=== PATIENT | male | born 1940 | race Caucasian/White ===

== ENCOUNTER 2022-02-09 15:51 | Inpatient (IN) | payer MEDICARE, OTHER ==
[~2022-02-09] VITALS: Ht 172.7 cm; Wt 84.4 kg
--- NOTE | 2022-02-09 16:06 | NUR ---
DR REYNOLDS AT BEDSIDE FOR EVALUATION.
--- NOTE | 2022-02-09 16:07 | NUR ---
Patient is awake, alert, oriented x3. Bleeding from both nares but much worse on left nares. Epistaxis clip applied. patient states he stopped Plavix 4 days ago and has a hx of nose bleed "due to prior neurosurgery where they enter from my left nostril"
[2022-02-09] MEDS ORDERED: OXYMETAZOLINE NASAL 0.05% 15 ML SPRAY NS ONE ×2 (16:12→16:15)
[2022-02-09 16:57] LABS: HEMATOCRIT 36.8 % (36.7-47.1); MEAN CORPUSCULAR HEMOGLOBIN 30.7 uug (23.8-33.4); MEAN CORPUSCULAR VOLUME 90.7 fL (73.0-96.2); PLATELET COUNT (AUTO) 172 K/uL (152-348)
[2022-02-09 17:05] LABS: CARBON DIOXIDE 28 mmol/L (21-32); CHLORIDE 103 mmol/L (98-107); CREATININE 1.4 mg/dL (0.6-1.3); GLUCOSE 130 mg/dL (74-106); POTASSIUM 3.9 mmol/L (3.5-5.1); UREA NITROGEN, BLOOD 28 mg/dL (7-18)
--- NOTE | 2022-02-09 17:24 | NUR ---
Nose bleed has diminished significantly since Dr Marie placed the "nasal tampon"
--- NOTE | 2022-02-09 17:37 | NUR ---
Patient ambulated to bathroom and voided urine and washed his hands. Denies dizziness or headache
[2022-02-09] MEDS ORDERED: IV NS 1000 ML 1,000 ML IV ONE (18:30)
--- NOTE | 2022-02-09 18:39 | NUR ---
Covid swab sent to lab, swabbed throat per Dr Marie since his left nare has a tampon and right nare is leaking blood, did not want to irritate it
--- NOTE | 2022-02-09 18:39 | NUR ---
Both nares oozing small amount of blood. Patient states he cannot drink water properly. Dr Marie aware.
--- NOTE | 2022-02-09 18:56 | NUR ---
Hand off report given to Ryan NIELSEN
[2022-02-09 19:12] LABS: *BILIRUBIN,URIN NEGATIVE (NEGATIVE); *BLOOD, URINE NEGATIVE (NEGATIVE); *CLARITY,URINE CLEAR (CLEAR); *COLOR,URINE YELLOW (YELLOW); *KETONES,URINE NEGATIVE (NEGATIVE); *UROBILINOGEN,URINE 0.2 E.U./dl (NORMAL); LEUKOCYTE ESTERASE ,URINE TRACE (NEGATIVE); NITRITE, URINE POSITIVE (NEGATIVE); PH,URINE 7.5 (5.0-8.0); UGLUCOSE NEGATIVE (NEGATIVE)
[2022-02-09 19:31] LABS: BACTERIA,URINE MODERATE /HPF (NONE SEEN); RBC,URINE 0-3 /HPF (0-3); SQUAMOUS EPITHELIAL CELL,UR FEW /HPF (NONE SEEN)
[2022-02-09] MEDS ORDERED: ENALAPRILAT DIHYDRATE 1.25 MG/1 ML VIAL IV PRN (19:45)
[2022-02-09] MEDS ORDERED: MAGNESIUM HYDROXIDE 30 ML LIQUID UDC PO PRN (19:45)
[2022-02-09] MEDS ORDERED: ACETAMINOPHEN 325 MG TABLET PO PRN (19:45)
[2022-02-09] MEDS ORDERED: ONDANSETRON 4 MG/2 ML VIAL IV PRN (19:45)
--- NOTE | 2022-02-09 20:38 | NUR ---
report given to Syeda NIELSEN Tele.
[2022-02-09] MEDS ORDERED: MELA3TAB41 PO (21:01)
[2022-02-09] MEDS ORDERED: TAMS-3 PO (21:01)
[2022-02-09] MEDS ORDERED: MELO-105 PO (21:01)
[2022-02-09] MEDS ORDERED: HYDR10SY16 PO (21:01)
--- NOTE | 2022-02-09 23:00 | NUR ---
Admitted a 81 years old male with Dx of Epistaxis. Patient AAOx4. In no apparent distress. Denies any pain or SOB at this time. Patient reported with Hx chronic back pain. Rhino Rocket nasal packing intact to left nare. Right nare with min bleeding. Patient spitting min. amount of blood as well and able to suction self. NSR on tele with HR of 82/min. IV site on left hand intact and patent. Routine admission care done. Plan of care initiated. Safety measure initiated and call light within reached.
--- NOTE | 2022-02-09 23:06 | NUR ---
pt admitted to room 308 via wheel chair with all belongings. VSAl. AOx4
[2022-02-09] MEDS: DOCUSATE SODIUM 100 MG CAPSULE PO SCH (23:23)
[2022-02-09 23:50] VITALS: BP 138/86
[2022-02-10 04:09] VITALS: BP 116/80
--- NOTE | 2022-02-10 05:55 | NUR ---
In no apparent distress. No complain of pain or SOB. Rhino Rocket nasal packing remains intact to left nare. Right nare with no further bleeding at this time. NSR on tele with HR of 60/min. IV site on left hand intact and patent. Needs attended to and met. Safety measure maintained and call light within reached.
[2022-02-10] MEDS ORDERED: ENALAPRILAT DIHYDRATE 1.25 MG/1 ML VIAL IV PRN (05:56)
[2022-02-10] MEDS: PANTOPRAZOLE SODIUM 40 MG TABLET.DR PO SCH (06:16)
[2022-02-10 07:01] LABS: HEMATOCRIT 35.8 % (36.7-47.1); MEAN CORPUSCULAR HEMOGLOBIN 31.2 uug (23.8-33.4); MEAN CORPUSCULAR VOLUME 90.7 fL (73.0-96.2); PLATELET COUNT (AUTO) 160 K/uL (152-348)
[2022-02-10 07:21] LABS: BILIRUBIN,TOTAL 0.5 mg/dL (0.2-1.0); CREATININE 1.3 mg/dL (0.6-1.3); MAGNESIUM 2.3 mg/dL (1.8-2.4); PHOSPHOROUS 2.8 mg/dL (2.5-4.9); TOTAL PROTEIN, SERUM 6.7 g/dL (6.4-8.2)
--- NOTE | 2022-02-10 07:30 | NUR ---
Alert, oriented x 4, hard of hearing. On moderate high back rest. Left nasal packing, with bloody nasal drip, self suctioned orally. Denies pain
[2022-02-10] MEDS ORDERED: POLYVINYL ALCOHOL OPHT DROPS 15 ML BOTTLE EACHEYE PRN (08:45)
[2022-02-10] MEDS ORDERED: hydrOXYzine HCL 10 MG TABLET PO PRN (10:15)
[2022-02-10] MEDS ORDERED: hydrOXYzine HCL 10 MG/5 ML UDC PO PRN (10:15)
[2022-02-10] MEDS ORDERED: MELATONIN 3 MG TABLET PO PRN (10:15)
[2022-02-10 11:46] VITALS: BP 139/65
[2022-02-10] MEDS: HYDROCODONE/APAP 5-325MG TABLET PO PRN ×3 (12:11→21:38)
--- NOTE | 2022-02-10 12:11 | NUR ---
Reports of a headache and discomfort on the left nares, requesting for adjustment of rhino rocket. Dr Camara informed, will follow up call with ENT, no adjustment to be made, leave rhino rocket as is. [place] PO given for headache.
--- NOTE | 2022-02-10 13:30 | NUR ---
Relief of a headache and left nares discomfort. No further bleeding noted.
[2022-02-10] MEDS: POLYVINYL ALCOHOL OPHT DROPS 15 ML BOTTLE EACHEYE PRN ×2 (14:07→20:14)
[2022-02-10 16:00] VITALS: BP 131/77
--- NOTE | 2022-02-10 16:03 | NUR ---
Reports of a headache. [place] PO given. at bedside.
--- NOTE | 2022-02-10 18:07 | NUR ---
headache resolved. Fair appetite, afebrile. No further bleeding noted. Rhino rocket intact on left nares. Tele SR 66.
--- NOTE | 2022-02-10 19:30 | NUR ---
Received patient lying in bed. Patient AAOx4. In no apparent distress. Denies any SOB. Mild headache at this time. Will provide Tylenol 650mg PO per order. Rhino Rocket nasal packing intact to left nares. No bleeding noted on right nares. NSR on tele with HR of 61/min. IV site on left hand intact and patent. Safety measure initiated and call light within reached.
[2022-02-10 20:06] VITALS: BP 119/45
[2022-02-10] MEDS: DOCUSATE SODIUM 100 MG CAPSULE PO SCH (20:13)
[2022-02-10 20:14] LABS: HEMATOCRIT 34.1 % (36.7-47.1)
[2022-02-10] MEDS ORDERED: ATORVASTATIN 40 MG TABLET PO SCH (21:00)
[2022-02-10] MEDS ORDERED: TAMSULOSIN HCL 0.4 MG CAP.SR.24H PO SCH (21:00)
[2022-02-11 00:05] VITALS: BP 155/65
[2022-02-11 04:00] VITALS: BP 155/86
[2022-02-11] MEDS: PANTOPRAZOLE SODIUM 40 MG TABLET.DR PO SCH (06:07)
--- NOTE | 2022-02-11 07:00 | NUR ---
Patient slept well last night. Rhino rocket on left nares remains in place. No bleeding noted on right nares and no spitting out blood. Needs attended to and met. Safety measure maintained and call light within reached.
--- NOTE | 2022-02-11 08:00 | NUR ---
AWAKE ALERT AND ORIENTED X3 NO SS OF PAIN OR DISTRESS. NASAL PACKING LEFT NOSE INTACT
--- NOTE | 2022-02-11 09:00 | NUR ---
SEEN BY DR GARDINER FOR FOLLOW-UP RREMOVE LEFT NASAL PACKING PATIENT TOLERATED WELL. WILL OBSERVE FOR BLEEDING.
[2022-02-11] MEDS ORDERED: CLOP75TA33 PO (09:26)
--- NOTE | 2022-02-11 11:01 | NUR ---
REMAINS STABLE NO SIGNS OF ACTIVE BLEEDING LEFT NOSTRIL, PLAN DC THIS PM PER MD'S ADVISE
[2022-02-11 11:55] VITALS: BP 126/75
--- NOTE | 2022-02-11 15:00 | NUR ---
discharged home stable with medication and follow-up instruction accompanied by
[2022-02-12] MEDS ORDERED: CLOPIDOGREL 75 MG TABLET PO SCH (09:00)
== END 2022-02-11 15:00 | disposition home or self-care (01) | DRG 919 ==
LOC: ER 15:53 → TELE3 21:20
PROVIDERS: ADMIT Internal Medicine; ATTEND Internal Medicine
PROC: 2Y41X5Z Packing of Nasal Region using Packing Material (ICD-10-PCS; principal; 2022-02-09)
DX: J95.831 Postprocedural hemorrhage of a respiratory system organ or structure following other procedure (principal); N17.0 Acute kidney failure with tubular necrosis; R04.0 Epistaxis; R03.0 Elevated blood-pressure reading, without diagnosis of hypertension; Z86.73 Personal history of transient ischemic attack (TIA), and cerebral infarction without residual deficits; Z79.02 Long term (current) use of antithrombotics/antiplatelets; E78.5 Hyperlipidemia, unspecified; Z20.822 Contact with and (suspected) exposure to COVID-19; Y83.8 Other surgical procedures as the cause of abnormal reaction of the patient, or of later complication, without mention of misadventure at the time of the procedure; Y92.89 Other specified places as the place of occurrence of the external cause; T45.515A Adverse effect of anticoagulants, initial encounter; Y72.8 Miscellaneous otorhinolaryngological devices associated with adverse incidents, not elsewhere classified
CPT/HCPCS: 36415; 71045; 83550; 83735; 84100; 85018; 85025; 85730; 86850; 86900; 86901; 87086; 93005; A4663; G0378; J3490